=== PATIENT | female | born 2000 | race Two or more races ===

== ENCOUNTER 2019-10-17 00:59 | Emergency (ER) | payer OTHER ==
[~2019-10-17] VITALS: Ht 154.9 cm; Wt 69.4 kg
[2019-10-17] MEDS ORDERED: CLARITIN10 M1 PO (03:43)
[2019-10-17] MEDS ORDERED: TUSNEL LIQUID178 ML PO (03:43)
== END 2019-10-17 04:43 | disposition home or self-care (01) ==
LOC: ER 00:59
DX: R05 Cough (principal); K29.60 Other gastritis without bleeding